=== PATIENT | female | born 1995 | race Caucasian/White ===

== ENCOUNTER 2018-09-17 17:19 | Emergency (ER) | payer MEDICAID, SELFPAY ==
[2018-09-17 17:51] LABS: #Lymphocytes 1.7 thou/uL (1.20-3.40); #Monocytes 0.5 thou/uL (0.11-0.59); #Neutrophils 5.6 thou/uL (1.40-6.50); %Basophils 0.5 % (0.0-1.0); %Eosinophils 0.5 % (0.0-10.0); %Monocytes 6.2 % (0.0-10.0); %Neutrophils 71.7 % (42.0-75.0); Hemoglobin 15.1 g/dL (12.0-16.0); Mean Corpuscular HGB CONC 34.7 g/dL (32.0-36.0); Mean Corpuscular Hemoglobin 32.3 pg (27.0-31.0); Mean Corpuscular Volume 93.2 fL (78.0-98.0); Mean Platelet Volume 6.7 fL (7.4-10.4); Platelet Count 274 thou/uL (130-400); RBC Distribution Width 11.8 % (11.5-14.5); Red Blood Cell (RBC) Count 4.67 mill/uL (4.20-5.40); White Blood Cell (WBC) Count 7.8 thou/uL (4.8-10.8)
[2018-09-17 18:08] LABS: Anion Gap 13 mmol/L (10-20); BUN (Urea Nitrogen) 11 mg/dL (7.0-18.7); Calc. Creatinine Clearance 0 mL/min (70-130); Calcium 10.2 mg/dL (7.8-10.44); Carbon Dioxide 26 mmol/L (22-29); Chloride 106 mmol/L (98-107); Estimated GFR-MDRD 90; Glucose 96 mg/dL (70-105); Sodium 141 mmol/L (136-145)
[2018-09-17 18:45] LABS: Bilirubin Negative (Negative); Blood, Urine Moderate (Negative); Clarity CLOUDY (Clear); Glucose, Urine (Dipstick) Negative (Negative); Leukocyte Negative (Negative); Nitrite Negative (Negative); Protein, Urine (Dipstick) Negative (Neg-Trace); Specific Gravity, Urine 1.012 (1.002-1.036); Urobilinogen 0.2 mg/dL (0.2-1.0); pH, Urine 7.5 (5.0-9.0)
[2018-09-17 18:47] LABS: Bacteria/HPF None Seen HPF (None Seen); Hyaline Casts/LPF 0-3 HYALINE CAST LPF (0-3 Hyaline); RBC/HPF 21-50 HPF (0-3); Squamous Epithelial None Seen HPF (0-3); WBC/HPF 0-3 HPF (0-3)
--- NOTE | 2018-09-17 18:49 | ULT ---
PELVIC ULTRASOUND WITH DOPPLER: 09/17/18 HISTORY: patient. Vaginal bleeding. COMPARISON: None. TECHNIQUE: Transabdominal and endovaginal imaging of the pelvis is performed. ovaries are interrogated with jauregui scale, color flow, doppler imaging with spectral waveform analysis. FINDINGS: The uterus is identified measuring 3.5 x 3.8 x 7.3 cm. There are no myometrial masses. Endometrium is slightly thickened and heterogeneous, measuring 1.3 cm. In the lower uterine segment, there is an an echoic focus with heterogeneous echotexture with possible debris. This may represent an active/sponta neous in progress. There is no evidence of a normal appearing gestational sac, yolk sac, or pole in the endometriu m. There is a trace amount of free fluid. Right ovary has a normal echotexture measuring 2.3 x 1.8 x 2.4 cm. In the left adnexa, there is an an echoic focus measuring 1.1 x 1.1 x 1.4 cm compatible with a corpus luteal cyst. Overall left ovary me asures 3.2 x 2.1 x 2.4 cm. OVARIAN DOPPLER: Vascular flow to both ovaries. IMPRESSION: Irregular mixed echotexture focus in the lower uterine segment which may represent a gestational sac undergoing active/spontaneous . Correlate with followup ultrasound and serial beta HCGs. POS: ROBIN
== END 2018-09-17 19:08 | disposition home or self-care (01) ==
LOC: ERS 17:19
DX: O20.0 Threatened abortion (principal); Z3A.09 9 weeks gestation of pregnancy
CPT/HCPCS: 36415; 76856; 80048; 81003; 81015; 84702; 85025; 86900; 86901

== ENCOUNTER 2019-01-14 13:08 | Emergency (ER) | payer MEDICAID | END 2019-01-14 15:16 | disposition left against medical advice (07) | LOC: ERS 13:08 | DX: Z53.21 Procedure and treatment not carried out due to patient leaving prior to being seen by health care provider (principal) ==

== ENCOUNTER 2020-10-02 17:42 | Day surgery (SDC) | payer MEDICAID, OTHER ==
[2020-10-02 18:35] VITALS: BP 125/70; TEMP 98.5; BMI 30.9
[2020-10-02] MEDS ORDERED: Ondansetron ODT 4 MG TAB PO PRN (18:38)
--- NOTE | 2020-10-02 18:48 | PDOC.EVN ---
Event Note - Event Note Event Note: 24 y/o at 31 and 2/7 weeks presents c/o isolated left upper quadrant pain and nausea. one episode of vomiting noted, and some recent GERD. The pain subsided for a day and has now returned. No fever, no diarrhea, no dysurea or back pain. Normal movement. No fevers. No Cough. No SOB. No Chest pain or palpitations. GEN- NAD, A&Ox3 CV- RRR RESP- CTA B'L ABDOM- S/NT/ND/Gravid EXT- No C/C/E NEURO - CN2-CN12 grossly Psych- NL Affect Assessment: 1. IUP at 31 weeks 2. RUQ pain 3. NL heart tracing Plan: 1. CBC, CMP 2. Zofran 3. Will complete triage work Up based on blood work/response to Zofran.
[2020-10-02 18:53] LABS: #Eosinphils 0.1 thou/uL (0.0-0.7); #Lymphocytes 1.7 thou/uL (1.20-3.40); #Monocytes 0.5 thou/uL (0.11-0.59); #Neutrophils 6.2 thou/uL (1.40-6.50); %Basophils 0.5 % (0.0-1.0); %Eosinophils 0.8 % (0.0-10.0); %Lymphocytes 19.9 % (21.0-51.0); %Monocytes 5.8 % (0.0-10.0); %Neutrophils 73.1 % (42.0-75.0); Hemoglobin 11.8 g/dL (12.0-16.0); Mean Corpuscular HGB CONC 34.7 g/dL (32.0-36.0); Mean Corpuscular Hemoglobin 33.3 pg (27.0-31.0); Mean Platelet Volume 6.5 fL (7.4-10.4); Platelet Count 235 thou/uL (130-400); RBC Distribution Width 11.6 % (11.5-14.5); Red Blood Cell (RBC) Count 3.56 mill/uL (4.20-5.40); White Blood Cell (WBC) Count 8.5 thou/uL (4.8-10.8)
[2020-10-02 19:10] LABS: Bacteria/HPF None Seen HPF (None Seen); Bilirubin Negative (Negative); Blood, Urine Negative (Negative); Clarity Turbid (Clear); Glucose, Urine (Dipstick) Normal (Negative); Ketone, Urine Negative (Negative); Leukocyte Negative Leu/uL (Negative); Nitrite Negative (Negative); Protein, Urine (Dipstick) Negative (Neg-Trace); RBC/HPF 0-3 HPF (0-3); Specific Gravity, Urine 1.014 (1.002-1.036); Squamous Epithelial 0-3 HPF (0-3); Urobilinogen Normal mg/dL (Less than 2); WBC/HPF None Seen HPF (0-3); pH, Urine 7.5 (5.0-9.0)
[2020-10-02 19:14] LABS: Urine Culture Reflex No No
[2020-10-02 19:16] LABS: ALT (SGPT) 9 U/L (8-55); AST (SGOT) 9 U/L (5-34); Albumin 3.3 g/dL (3.5-5.0); Alkaline Phosphatase 104 U/L (40-110); Anion Gap 14 mmol/L (10-20); BUN (Urea Nitrogen) 5 mg/dL (7.0-18.7); Bilirubin, Total Less than 0.2 mg/dL (0.2-1.2); Calc. Creatinine Clearance 203 mL/min (70-130); Calcium 8.7 mg/dL (7.8-10.44); Carbon Dioxide 20 mmol/L (22-29); Chloride 107 mmol/L (98-107); Globulin 2.9 g/dL (2.4-3.5); Glucose 120 mg/dL (70-105); Potassium 3.4 mmol/L (3.5-5.1); Protein, Total 6.2 g/dL (6.0-8.3); Sodium 138 mmol/L (136-145)
== END 2020-10-02 20:06 ==
LOC: L&D/OP 17:42
PROVIDERS: ATTEND Obstetrics & Gynecology
DX: O99.891 Other specified diseases and conditions complicating pregnancy (principal); R10.11 Right upper quadrant pain; O21.2 Late vomiting of pregnancy; O99.613 Diseases of the digestive system complicating pregnancy, third trimester; K21.9 Gastro-esophageal reflux disease without esophagitis; Z3A.31 31 weeks gestation of pregnancy
CPT/HCPCS: 36415; 80053; 81001; 85025; 99283

== ENCOUNTER 2020-11-13 21:26 | Inpatient (IN) | payer OTHER ==
[~2020-11-13 21:26] MED LIST: Lidocaine 2% PF 5 ML VIAL ONE
[2020-11-13] MEDS ORDERED: Butorphanol Tartrate 1 MG/ML VIAL SLOW IVP PRN (22:34)
[2020-11-13] MEDS ORDERED: Lidocaine 1% (PF) 30 ML VIAL SC PRN (22:34)
[2020-11-13] MEDS ORDERED: Ibuprofen 800 MG TAB PO PRN (22:34)
[2020-11-13] MEDS ORDERED: Ondansetron PF 4 MG/2 ML Vial IVP PRN (22:34)
[2020-11-13] MEDS ORDERED: Acetaminophen 500 MG TAB PO PRN (22:34)
[2020-11-13] MEDS ORDERED: NS / Oxytocin 40 units/1000ml 1,000 ML IV PRN (22:34)
[2020-11-13] MEDS ORDERED: Misoprostol 200 MCG TAB PR PRN (22:34)
[2020-11-13] MEDS ORDERED: Diphenoxylate HCl/Atropine Tablet PO PRN ×2 (22:34)
[2020-11-13] MEDS ORDERED: HYDROcodone/Acetaminophen 5/325 mg Tablet PO PRN ×2 (22:34)
[2020-11-13] MEDS ORDERED: Docusate 100 MG CAP PO PRN (22:34)
[2020-11-13] MEDS ORDERED: Carboprost 250 MCG/ML AMP IM PRN (22:34)
[2020-11-13] MEDS ORDERED: hydrALAZINE 20 MG/ML VIAL SLOW IVP PRN (22:34)
[2020-11-13] MEDS ORDERED: Promethazine HCl 25 MG/ML VIAL IM PRN (22:34)
[2020-11-13] MEDS ORDERED: Zolpidem Tartrate 5 MG TAB PO PRN (22:34)
[2020-11-13 22:38] VITALS: BMI 29.2
--- NOTE | 2020-11-13 22:39 | PDOC.LDHP ---
Labor and Delivery H&P HPI: 24 at 37 and 2/7 weeks presents from clinic with diagnosis of IUGR and suspected new onset of GHTN. No Proteinurea in clinic. Recent COVID infection/resolution of symptoms. Current gestational age (weeks): 37 Due date: 12/02/20 Grav: 2 Para: 0 Abnormal US findings: Yes (IUGR) Current medications: pre-roseanne vitamins Allergies/Adverse Reactions: Allergies Allergy/AdvReac Type Severity Reaction Status Date / Time No Known Allergies Allergy Verified 11/13/20 22:32 Social history: none - Physical Exam Vital signs reviewed and normal: yes General: NAD, resting Heart: RRR Lungs: CTAB Abdomen: gravid FHT: category 1 - Vaginal Exam cm dilated: 1 Effacement: 50% Station: -2 - Assessment L&D Assessment: medically indicated induction - Plan Plan: admit to L&D, cervical ripening
[2020-11-13] MEDS ORDERED: NS w/ Oxytocin 30 units 500 ML IVPB SCH ×2 (23:00→23:15)
[2020-11-13] MEDS ORDERED: NS w/ Oxytocin 30 units 500 ML IVPB PRN ×2 (23:02→23:05)
[2020-11-14] MEDS: Misoprostol 100 MCG TAB VAG SCH ×4 (00:38→21:45)
[2020-11-14 00:53] LABS: Hemoglobin 11.9 g/dL (12.0-16.0); Mean Corpuscular HGB CONC 35.3 g/dL (32.0-36.0); Mean Corpuscular Hemoglobin 32.9 pg (27.0-31.0); Mean Corpuscular Volume 93.2 fL (78.0-98.0); Platelet Count 254 thou/uL (130-400); RBC Distribution Width 11.8 % (11.5-14.5); Red Blood Cell (RBC) Count 3.63 mill/uL (4.20-5.40); White Blood Cell (WBC) Count 11.5 thou/uL (4.8-10.8)
[2020-11-14 01:18] LABS: ALT (SGPT) 8 U/L (8-55); AST (SGOT) 10 U/L (5-34); Albumin 3.4 g/dL (3.5-5.0); Alkaline Phosphatase 132 U/L (40-110); Anion Gap 17 mmol/L (10-20); BUN (Urea Nitrogen) 7 mg/dL (7.0-18.7); Bilirubin, Total 0.2 mg/dL (0.2-1.2); Calc. Creatinine Clearance 204 mL/min (70-130); Calcium 8.4 mg/dL (7.8-10.44); Carbon Dioxide 17 mmol/L (22-29); Chloride 107 mmol/L (98-107); Globulin 2.5 g/dL (2.4-3.5); Glucose 81 mg/dL (70-105); Protein, Total 5.9 g/dL (6.0-8.3); Sodium 137 mmol/L (136-145)
[2020-11-14 01:29] LABS: Syphilis Antibody Nonreactive (Nonreactive); Syphilis Antibody Index 0.04 S/CO (<1.00 Non-Reactive)
[2020-11-14 01:30] LABS: HBSAg Index 0.19 S/CO (0-0.99); Hep B Surf Ag Non-Reactive S/CO (NonReactive)
[2020-11-14] MEDS: Lactated Ringer's 1,000 ML IV SCH ×3 (04:49→21:45)
[2020-11-14] MEDS ORDERED: Fentanyl 4 mcg/Bup 0.1% Cadd 100 ML ONE (12:01)
[2020-11-14] MEDS ORDERED: Naloxone HCl 0.4 mg/ml Vial IVP PRN ×2 (12:39)
[2020-11-14] MEDS ORDERED: Promethazine HCl 25 MG/ML VIAL IM PRN ×2 (12:39→19:32)
[2020-11-14] MEDS ORDERED: Acetaminophen 325 MG TAB PO PRN (12:39)
[2020-11-14] MEDS ORDERED: Ondansetron PF 4 MG/2 ML Vial IVP PRN ×2 (12:39→19:32)
[2020-11-14] MEDS ORDERED: Lactated Ringer's 500 ML IV PRN (12:39)
[2020-11-14] MEDS ORDERED: ePHEDrine 50 MG/ML VIAL SLOW IVP PRN (12:39)
[2020-11-14] MEDS ORDERED: diphenhydrAMINE 50 MG/ML VIAL IVP PRN (12:39)
[2020-11-14] MEDS ORDERED: Communication Order-Pharmacy FS SCH (12:45)
[2020-11-14] MEDS ORDERED: Fentanyl 4 mcg/Bupivacaine 0.1% Cassette 100 ML EPIDURAL SCH (12:45)
[2020-11-14] MEDS ORDERED: NS / Oxytocin 40 units/1000ml 1,000 ML IV SCH (19:32)
[2020-11-14] MEDS ORDERED: Varicella virus, LIVE 0.5 ML VIAL SC ONE (19:32)
[2020-11-14] MEDS ORDERED: diphenhydrAMINE 25 MG CAP PO PRN (19:32)
[2020-11-14] MEDS ORDERED: Measles/Mumps/Rubella 10 MCG/0.5 ML VIAL SC ONE (19:32)
[2020-11-14] MEDS ORDERED: Bisacodyl 10 MG SUPP PR PRN (19:32)
[2020-11-14] MEDS ORDERED: Preparation H Ointment 28 GM TUBE PR PRN (19:32)
[2020-11-14] MEDS ORDERED: Lanolin Ointment 7 GM TUBE TOP PRN (19:32)
[2020-11-14] MEDS ORDERED: Adacel (T-DAP) 0.5 ML SYRINGE IM ONE (19:32)
[2020-11-14] MEDS ORDERED: HYDROcodone/Acetaminophen 5/325 mg Tablet PO PRN ×2 (19:32)
[2020-11-14] MEDS ORDERED: hydrALAZINE 20 MG/ML VIAL SLOW IVP PRN (19:32)
[2020-11-14] MEDS ORDERED: Misoprostol 200 MCG TAB VAG PRN (19:32)
[2020-11-14] MEDS ORDERED: Milk Of Magnesia 30 ML UDCUP PO PRN (19:32)
[2020-11-14] MEDS ORDERED: Benzocaine-Menthol 82.5 ML CAN TOP PRN (19:32)
[2020-11-14] MEDS ORDERED: Zolpidem Tartrate 5 MG TAB PO PRN (19:32)
[2020-11-14] MEDS: Docusate Calcium (SURFAK) 240 MG CAP PO SCH (22:00)
[2020-11-14] MEDS: Ibuprofen 800 MG TAB PO SCH (22:00)
[2020-11-15] MEDS: Misoprostol 100 MCG TAB VAG SCH (01:03)
[2020-11-15] MEDS: Ibuprofen 800 MG TAB PO SCH ×3 (06:30→21:26)
[2020-11-15 06:53] LABS: Hemoglobin 11.4 g/dL (12.0-16.0); Mean Corpuscular HGB CONC 34.5 g/dL (32.0-36.0); Mean Corpuscular Hemoglobin 32.7 pg (27.0-31.0); Mean Corpuscular Volume 94.9 fL (78.0-98.0); Mean Platelet Volume 7.1 fL (7.4-10.4); Platelet Count 198 thou/uL (130-400); RBC Distribution Width 11.9 % (11.5-14.5); Red Blood Cell (RBC) Count 3.48 mill/uL (4.20-5.40); White Blood Cell (WBC) Count 12.5 thou/uL (4.8-10.8)
[2020-11-15] MEDS: Ferrous Sulfate 325 MG TAB PO SCH ×2 (07:25→16:40)
[2020-11-15] MEDS: Prenatal Vitamin 1 TAB PO SCH (09:35)
[2020-11-15] MEDS: Docusate Calcium (SURFAK) 240 MG CAP PO SCH ×2 (09:35→21:26)
--- NOTE | 2020-11-15 19:09 | PDOC.PP ---
Post Progress Note Post Day #: 1 PO intake tolerated: yes Flatus: yes Ambulation: yes Vital Signs (12 hours) Temp Pulse Resp BP Pulse Ox 11/15/20 16:00 98.2 F 90 20 129/68 11/15/20 11:15 97.8 F 87 16 110/59 L 11/15/20 08:20 97.9 F 97 20 113/74 100 Weight Weight 181 lb - Physical Examination General: NAD Cardiovascular: no m/r/g, RRR Respiratory: clear to auscultation bilaterally Abdominal: + bowel sounds, lochia, no distention, appropriately TTP Extremities: negative homans (B) Neurological: no gross focal deficits Psychiatric: A&Ox3, normal affect Result Diagrams: 11/15/20 06:27 11/13/20 23:13 Additional Labs: Post Labs Hep Bs Antigen Non-Reactive S/CO (NonReactive) 11/13/20 23:13 Blood Type O POSITIVE 11/13/20 23:13
[2020-11-16] MEDS: Ibuprofen 800 MG TAB PO SCH ×2 (05:34→13:40)
[2020-11-16] MEDS: Ferrous Sulfate 325 MG TAB PO SCH ×2 (08:55→16:23)
--- NOTE | 2020-11-16 10:25 | PDOC.PP ---
Post Progress Note Post Day #: 1 PO intake tolerated: yes Flatus: yes Ambulation: yes Vital Signs (12 hours) Temp Pulse Resp BP Pulse Ox 11/16/20 08:29 98.2 F 90 20 108/64 97 11/16/20 08:05 97 11/16/20 00:00 97.8 F 80 18 111/69 97 Weight Weight 181 lb - Physical Examination General: NAD Cardiovascular: no m/r/g, RRR Respiratory: clear to auscultation bilaterally Abdominal: + bowel sounds, lochia, no distention Extremities: negative homans (B) Neurological: no gross focal deficits Psychiatric: A&Ox3, normal affect (DC to home. OTC Motrin requested per pat ient.) Result Diagrams: 11/15/20 06:27 11/13/20 23:13 Additional Labs: Post Labs Hep Bs Antigen Non-Reactive S/CO (NonReactive) 11/13/20 23:13 Blood Type O POSITIVE 11/13/20 23:13
[2020-11-16] MEDS: Prenatal Vitamin 1 TAB PO SCH (10:33)
[2020-11-16] MEDS: Docusate Calcium (SURFAK) 240 MG CAP PO SCH (10:33)
[2020-11-16 11:50] VITALS: BP 129/78; TEMP 98
--- NOTE | 2020-11-16 14:46 | DN ---
DATE OF PROCEDURE: 11/14/2020 TIME: 1803 Central Standard Time. PREOPERATIVE DIAGNOSES: Intrauterine at 37 weeks and 3 days with a term induction of labor for intrauterine growth restriction and gestational hypertension. POSTOPERATIVE DIAGNOSES: Intrauterine at 37 weeks and 3 days with a term induction of labor for intrauterine growth restriction and gestational hypertension. PROCEDURES PERFORMED: Spontaneous vaginal delivery over intact perineum. FINDINGS: Viable male weighing 2583 g or 5 pounds 11 ounces with a loose nuchal cord x1 noted at delivery. Apgars of 8 and 9. COMPLICATIONS: None. QUANTITATIVE BLOOD LOSS: 150 mL. PROCEDURE IN DETAIL: The patient presented to [facility] where she was admitted to the labor and delivery service. The patient underwent a normal and uneventful labor with normal cervical dilatation until she was found to be completely dilated. She was then allowed to push and was able to bring the baby down and delivered the baby in a vertex presentation without difficulties. Once the head delivered in occiput anterior position, the shoulders followed spontaneously along with the rest of the baby's body. Once out the baby's mouth and nose were bulb suctioned. The cord was clamped and cut and baby was handed to waiting attendants. Cord blood was collected. Gentle fundal massage was performed and the placenta delivered intact without problems. Hemostasis was assured. Quantitative blood loss was calculated. Inspection of the cervix, vaginal vault, and perineum did not reveal any lacerations needing suturing. Once again, hemostasis was within normal limits and the patient was allowed to recover in the labor and delivery room. Baby went to nursery. Job ID: [id number]
== END 2020-11-16 18:30 | disposition home or self-care (01) | DRG 807 ==
LOC: L&D 21:26 → 3SW 11-15 00:27
PROVIDERS: ADMIT Obstetrics & Gynecology; ATTEND Obstetrics & Gynecology
PROC: 10E0XZZ Delivery of Products of Conception, External Approach (ICD-10-PCS; principal; 2020-11-14)
DX: O36.5930 Maternal care for other known or suspected poor fetal growth, third trimester, not applicable or unspecified (principal); Z37.0 Single live birth; Z3A.37 37 weeks gestation of pregnancy; O13.4 Gestational [pregnancy-induced] hypertension without significant proteinuria, complicating childbirth
CPT/HCPCS: 36415; 51702; 80053; 85027; 86780; 86850; 86900; 86901; 87340; 90715; J2001; J2405; J2590